=== PATIENT | male | born 1960 | race Caucasian/White ===

== ENCOUNTER 2022-08-13 10:34 | Inpatient (IN) | payer OTHER ==
[~2022-08-13] VITALS: Ht 175.3 cm; Wt 136.8 kg
[2022-08-13] MEDS ORDERED: NS 1,000 ML IV ONE (11:40)
[2022-08-13 12:00] LABS: BASO % 0.9 % (0.0-1.0); EOS # 0.1 10^3/uL (0.0-0.5); EOS % 2.8 % (0.0-3.0); HEMATOCRIT 41.3 % (42.0-52.0); HEMOGLOBIN 13.8 g/dl (13.5-17.5); LYMPH % 20.6 % (24.0-44.0); MEAN CORPUSCULAR HEMOGLOBIN 29.4 pg (27.0-33.0); MEAN CORPUSCULAR HGB CONC 33.4 g/dl (32.0-36.5); MEAN CORPUSCULAR VOLUME 87.9 fl (80.0-96.0); MONO # 0.5 10^3/uL (0.0-0.8); MONO % 9.8 % (2.0-8.0); PLATELET COUNT, AUTOMATED 164 10^3/uL (150-450); WHITE BLOOD COUNT 4.6 10^3/uL (4.0-10.0)
[2022-08-13] MEDS ORDERED: MECLIZINE 25 MG TABLET PO ONE (12:20)
[2022-08-13 12:41] LABS: ALBUMIN 3.9 GM/DL (3.2-5.2); BILIRUBIN,DIRECT 0.2 MG/DL (0.0-0.2); BILIRUBIN,TOTAL 0.7 MG/DL (0.2-1.0); CALCIUM LEVEL 9.7 MG/DL (8.8-10.2); CREATININE FOR GFR 2.21 MG/DL (0.70-1.30); GLOMERULAR FILTRATION RATE 32.4 (>49); TOTAL PROTEIN 6.7 GM/DL (6.4-8.2)
[2022-08-13] MEDS ORDERED: GLUCAGON INJ 1MG VIAL SC PRN (13:05)
[2022-08-13] MEDS ORDERED: GLUCOSE 4GM CHEW TABLET PO PRN (13:05)
[2022-08-13] MEDS ORDERED: DEXTROSE 50% 50 ML SYRINGE IV PRN (13:05)
[2022-08-13] MEDS: NS 1,000 ML IV SCH ×3 (13:05→16:00)
[2022-08-13] MEDS ORDERED: ERGO500029 PO (15:24)
[2022-08-13] MEDS ORDERED: LABE20TAB PO (15:24)
[2022-08-13] MEDS ORDERED: ALLO300T2 PO (15:24)
[2022-08-13] MEDS ORDERED: HYDR-3490 PO (15:24)
[2022-08-13] MEDS ORDERED: METF-838 PO (15:24)
[2022-08-13] MEDS ORDERED: CLOT1CRE56 TOP (15:24)
[2022-08-13] MEDS ORDERED: LISI40TA4 PO (15:24)
[2022-08-13] MEDS ORDERED: HOME MED LIST COMPLETE! XX SCH (15:25)
[2022-08-13] MEDS: INSULIN LISPRO (NovoLOG) PER UNIT SC SCH (17:30)
[2022-08-13 20:46] VITALS: BP 110/67
[2022-08-13 20:50] VITALS: BP 111/68
[2022-08-13 20:52] VITALS: BP_SYST 126; BP_SYST 128; BP_DIAS 70; BP_DIAS 71
[2022-08-13] MEDS ORDERED: LEVEMIR (INSULIN DETEMIR) 1 UNITS/0.01ML SC SCH (21:00)
[2022-08-13] MEDS ORDERED: INSULIN LISPRO (NovoLOG) PER UNIT SC SCH (21:00)
[2022-08-13] MEDS: HEPARIN SOD (PORCINE) 5000UNITS/ML 1ML VIAL/SYRINGE SQ SCH (21:09)
[2022-08-13 22:41] LABS: CALCIUM LEVEL 8.4 MG/DL (8.8-10.2); CREATININE FOR GFR 1.65 MG/DL (0.70-1.30); GLOMERULAR FILTRATION RATE 45.4 (>49); POTASSIUM SERUM 3.6 MEQ/L (3.5-5.1)
[2022-08-14] MEDS: NS 1,000 ML IV SCH ×2 (00:21→10:01)
[2022-08-14 05:04] VITALS: BP_SYST 107; BP_SYST 126; BP_SYST 127; BP_DIAS 71; BP_DIAS 78; BP_DIAS 79
[2022-08-14 06:00] VITALS: BP 124/72
[2022-08-14 06:11] LABS: EOS # 0.1 10^3/uL (0.0-0.5); EOS % 3.5 % (0.0-3.0); HEMATOCRIT 37.6 % (42.0-52.0); HEMOGLOBIN 12.3 g/dl (13.5-17.5); LYMPH % 33.5 % (24.0-44.0); MEAN CORPUSCULAR HEMOGLOBIN 28.9 pg (27.0-33.0); MEAN CORPUSCULAR HGB CONC 32.7 g/dl (32.0-36.5); MEAN CORPUSCULAR VOLUME 88.5 fl (80.0-96.0); MONO # 0.3 10^3/uL (0.0-0.8); MONO % 10.3 % (2.0-8.0); NEUTROPHILS # 1.6 10^3/uL (1.5-8.5); NEUTROPHILS % 50.7 % (36.0-66.0); PLATELET COUNT, AUTOMATED 147 10^3/uL (150-450); RED BLOOD COUNT 4.25 10^6/uL (4.30-6.10); WHITE BLOOD COUNT 3.1 10^3/uL (4.0-10.0)
[2022-08-14 06:33] LABS: HEMOGLOBIN A1c 12.5 %
[2022-08-14 06:51] LABS: BLOOD UREA NITROGEN 39 MG/DL (7-18); CALCIUM LEVEL 8.4 MG/DL (8.8-10.2); CARBON DIOXIDE LEVEL 22 MEQ/L (21-32); CHLORIDE LEVEL 109 MEQ/L (98-107); CHOLESTEROL LEVEL 169 MG/DL (<200); CHOLESTEROL RISK RATIO 4.694 (<5); GLOMERULAR FILTRATION RATE 59.7 (>49); GLUCOSE, FASTING 122 MG/DL (70-100); HDL CHOLESTEROL 36 MG/DL (>40); LDL CHOLESTEROL 88 MG/DL (<100); NON-HDL-C 133 MG/DL; POTASSIUM SERUM 3.8 MEQ/L (3.5-5.1); SODIUM LEVEL 139 MEQ/L (136-145); TRIGLYCERIDES LEVEL 226 MG/DL (<150)
[2022-08-14] MEDS ORDERED: LANC30MI XX (08:45)
[2022-08-14] MEDS ORDERED: HUMA100I5 SC (08:45)
[2022-08-14] MEDS ORDERED: LEVE1INJ5 SC (08:45)
[2022-08-14] MEDS ORDERED: PEN1MIS21 SC (08:45)
[2022-08-14] MEDS ORDERED: GLUC1TES2 XX (08:45)
[2022-08-14] MEDS ORDERED: ALCOPAD25 TOP (08:45)
[2022-08-14] MEDS ORDERED: NORV5TAB PO (08:46)
[2022-08-14] MEDS ORDERED: SELF1KIT MC (08:46)
[2022-08-14] MEDS ORDERED: allopurinoL 300 MG TAB PO SCH (09:00)
[2022-08-14] MEDS: HEPARIN SOD (PORCINE) 5000UNITS/ML 1ML VIAL/SYRINGE SQ SCH (09:23)
[2022-08-14] MEDS: INSULIN LISPRO (NovoLOG) PER UNIT SC SCH ×2 (09:24→12:30)
[2022-08-14 10:59] LABS: HEPATITIS B SURFACE ANTIGEN NEGATIVE (NEGATIVE)
[2022-08-14 11:24] LABS: HEPATITIS C VIRUS ABY INDEX < 0.0 INDEX (<0.8)
[2022-08-14 11:27] LABS: HEPATITIS B CORE ANTIBODY IGM NEGATIVE (NEGATIVE)
[2022-08-14] MEDS ORDERED: BASA100I SC (12:13)
[2022-08-14] MEDS ORDERED: ADME100I2 SC (12:15)
[2022-08-14] MEDS ORDERED: PYRI1TAB5 PO (13:25)
[2022-08-14] MEDS ORDERED: AMLO10TA PO (13:32)
[2022-08-15 10:11] LABS: ANTINUCLEAR ANTIBODIES DIRECT Negative (Negative)
== END 2022-08-14 12:59 | disposition home or self-care (01) | DRG 469 ==
LOC: M ED 10:34 → M ED INP 12:58 → M MSPAV 20:34
PROVIDERS: ADMIT General Practice; ATTEND General Practice
DX: N17.9 Acute kidney failure, unspecified (principal); E11.9 Type 2 diabetes mellitus without complications; I10 Essential (primary) hypertension; E66.9 Obesity, unspecified; Z68.41 Body mass index [BMI] 40.0-44.9, adult; Z87.891 Personal history of nicotine dependence; I95.1 Orthostatic hypotension; R30.0 Dysuria; Z79.84 Long term (current) use of oral hypoglycemic drugs; E86.0 Dehydration; E78.5 Hyperlipidemia, unspecified; Z79.899 Other long term (current) drug therapy; Z91.040 Latex allergy status; Z20.822 Contact with and (suspected) exposure to COVID-19; R19.7 Diarrhea, unspecified; T46.4X5A Adverse effect of angiotensin-converting-enzyme inhibitors, initial encounter; T50.2X5A Adverse effect of carbonic-anhydrase inhibitors, benzothiadiazides and other diuretics, initial encounter

== ENCOUNTER 2022-08-15 06:05 | Emergency (ER) | payer OTHER ==
[~2022-08-15] VITALS: Ht 175.3 cm; Wt 137.7 kg
[~2022-08-15 06:05] MED LIST: ADME100I2 SC; ALCOPAD25 TOP; ALLO300T2 PO; AMLO10TA PO; BASA100I SC; CLOT1CRE56 TOP; ERGO500029 PO; GLUC1TES2 XX; HUMA100I5 SC; HYDR-3490 PO; LABE20TAB PO; LANC30MI XX; LEVE1INJ5 SC; LISI40TA4 PO; METF-838 PO; NORV5TAB PO; PEN1MIS21 SC; PYRI1TAB5 PO; SELF1KIT MC
[2022-08-15 07:23] VITALS: BP 140/81
== END 2022-08-15 07:26 | disposition home or self-care (01) ==
LOC: M ED 06:05
DX: Z00.00 Encounter for general adult medical examination without abnormal findings (principal); E11.9 Type 2 diabetes mellitus without complications; I10 Essential (primary) hypertension; H40.9 Unspecified glaucoma; Z79.4 Long term (current) use of insulin; Z79.899 Other long term (current) drug therapy; Z91.040 Latex allergy status

== ENCOUNTER 2024-12-27 06:24 | Day surgery (SDC) | payer OTHER ==
[~2024-12-27] VITALS: Ht 177.8 cm; Wt 169.0 kg
[~2024-12-27 06:24] MED LIST changes: +CYCLOPENTOLATE 1% OPHTH SOLN 2ML BTL OD SCH; +FLURBIPROFEN 0.03% OPHTH SOLN 2.5 ML OD SCH; +HYDR12.55 PO; +INSU100I6 SC; +JANU25TA PO; -LEVE1INJ5 SC; +LOSA100T46 PO; +OLME20TA50 PO; +OLME40TA PO; +PEN-308 SC; -PEN1MIS21 SC; +PHENYLEPHRINE 2.5% OPHTH SOL 2ML OD SCH; +PIOG1TAB37 PO; +SIMV20TA22 PO; +TETRACAINE 0.5% OPHTH SOLN 4ML OD SCH
[2024-12-27] MEDS ORDERED: GLUCOSE 4 GM CHEW PO PRN (06:30)
[2024-12-27] MEDS ORDERED: INSULIN LISPRO (NovoLOG) PER UNIT SC PRN ×2 (06:30)
[2024-12-27] MEDS ORDERED: DEXTROSE 50% 50ML SYRINGE IV PRN (06:30)
[2024-12-27] MEDS ORDERED: GLUCAGON INJ 1MG VIAL SC PRN (06:30)
[2024-12-27] MEDS ORDERED: LR 1,000 ML IV SCH (07:00)
[2024-12-27] MEDS: LIDOCAINE 1% SDV 5ML VIAL As Ordered ONE (08:01)
[2024-12-27] MEDS: CEFUROXIME 1MG/0.1ML INTRACAMERAL INJ As Ordered ONE (08:01)
[2024-12-27] MEDS ORDERED: fentaNYL 100 MCG/2 ML INJECTION As Ordered ONE (08:18)
[2024-12-27] MEDS ORDERED: MIDAZOLAM INJ 2MG/2ML VIAL As Ordered ONE (08:19)
[2024-12-27] MEDS: PROVISC 10 MG/ML 0.85ML SYRINGE As Ordered ONE (08:23)
[2024-12-27 08:53] VITALS: BP 127/71; TEMP 96.7; O2SAT 93
== END 2024-12-27 09:06 | disposition home or self-care (01) ==
LOC: M SDC 06:24
PROVIDERS: ATTEND Ophthalmology
DX: H25.9 Unspecified age-related cataract (principal); H40.10X1 Unspecified open-angle glaucoma, mild stage; E11.9 Type 2 diabetes mellitus without complications; Z68.43 Body mass index [BMI] 50.0-59.9, adult; Z91.040 Latex allergy status; Z88.8 Allergy status to other drugs, medicaments and biological substances; Z79.899 Other long term (current) drug therapy; Z87.891 Personal history of nicotine dependence
CPT/HCPCS: 66991; C1783; J0697; J1120; J2250; J3010; V2632